=== PATIENT | female | born 1995 | race Hispanic/Latino ===

== ENCOUNTER 2022-01-26 17:06 | Observation (INO) | payer MEDICAID ==
[~2022-01-26] VITALS: Ht 157.5 cm; Wt 99.8 kg
[2022-01-26 17:11] VITALS: BP 137/83
[2022-01-26 17:58] LABS: APPEARANCE,URINE CLOUDY (CLEAR); BILIRUBIN,URINE NEGATIVE (NEGATIVE); COLOR,URINE YELLOW (YELLOW); GLUCOSE, URINE (UA) NEGATIVE (NEGATIVE); KETONES,URINE NEGATIVE (NEGATIVE); LEUKOCYTE ESTERASE ,URINE 500 Leu/uL (NEGATIVE); NITRATE,URINE NEGATIVE (NEGATIVE); OCCULT BLOOD,URINE NEGATIVE (NEGATIVE); PROTEIN,URINE 50 mg/dL (NEGATIVE); UROBILINOGEN,URINE 6 mg/dL (0.2-1.0)
[2022-01-26 18:06] LABS: BACTERIA,URINE RARE /HPF (None Seen); CALCIUM OXALATE CRYSTALS,UR RARE /LPF (None Seen); MUCUS,URINE RARE LPF (None Seen); RENAL EPITHELIAL CELLS,URINE RARE /HPF (None Seen); SQUAMOUS EPITHELIAL CELL,UR MANY /HPF (0-2)
[2022-01-26] MEDS ORDERED: ONDANSETRON 4MG INJ IVP ONE (19:30)
[2022-01-26] MEDS ORDERED: LACTATED RINGERS 1000ML IV SCH (19:30)
[2022-01-26] MEDS ORDERED: LACTATED RINGERS 1000ML 1,000 ML IV SCH (21:00)
== END 2022-01-26 21:20 | disposition home or self-care (01) ==
LOC: EDH 17:06 → LDH 17:07
PROVIDERS: ADMIT Obstetrics & Gynecology; ATTEND Obstetrics & Gynecology
DX: O21.2 Late vomiting of pregnancy (principal); O26.893 Other specified pregnancy related conditions, third trimester; R19.7 Diarrhea, unspecified; Z3A.37 37 weeks gestation of pregnancy; Z79.899 Other long term (current) drug therapy
CPT/HCPCS: 96374; 59025; 87088; 81001; G0378 ×4; G0379; J7120; J2405; 96360

== ENCOUNTER 2022-06-12 21:24 | Emergency (ER) | payer MEDICAID ==
[~2022-06-12] VITALS: Ht 157.5 cm; Wt 86.6 kg
[2022-06-13] MEDS ORDERED: 0.9%NACL 1000ML 1,000 ML IV ONE
[2022-06-13] MEDS ORDERED: MORPHINE 4 MG SYG IVP ONE
[2022-06-13] MEDS ORDERED: ONDANSETRON 4MG INJ IVP ONE
[2022-06-13 00:05] LABS: BASOPHILS % (AUTO) 0.3 % (0.0-5.0); EOSINOPHILS % (AUTO) 0.3 % (0.0-8.0); HEMATOCRIT 45.5 % (36-48); LYMPHOCYTES % (AUTO) 16.6 % (21.0-51.0); MEAN CORPUSCULAR HEMOGLOBIN 26.5 pg (27.0-33.0); MEAN CORPUSCULAR HGB CONC 32.3 g/dL (32.0-36.0); MONOCYTES % (AUTO) 4.1 % (3.0-13.0); NEUTROPHILS % (AUTO) 78.3 % (40.0-77.0); PLATELET COUNT (AUTO) 292 K/uL (130-400); RED BLOOD CELL COUNT(AUTO) 5.55 MIL/uL (4.00-5.50); RED CELL DISTRIBUTION WIDTH 15.8 % (11.0-15.5); WHITE BLOOD COUNT (AUTO) 15.5 K/uL (4.8-10.8)
[2022-06-13 00:10] LABS: APPEARANCE,URINE CLEAR (CLEAR); BILIRUBIN,URINE NEGATIVE (NEGATIVE); COLOR,URINE YELLOW (YELLOW); GLUCOSE, URINE (UA) NEGATIVE (NEGATIVE); KETONES,URINE NEGATIVE (NEGATIVE); LEUKOCYTE ESTERASE ,URINE NEGATIVE Leu/uL (NEGATIVE); NITRATE,URINE NEGATIVE (NEGATIVE); OCCULT BLOOD,URINE NEGATIVE (NEGATIVE); PROTEIN,URINE 20 mg/dL (NEGATIVE); UROBILINOGEN,URINE 0.2 mg/dL (0.2-1.0)
[2022-06-13 00:12] LABS: HCG,QUALITATIVE URINE NEGATIVE (NEGATIVE)
[2022-06-13 00:13] LABS: BACTERIA,URINE RARE /HPF (None Seen); MUCUS,URINE MANY LPF (None Seen); SQUAMOUS EPITHELIAL CELL,UR FEW /HPF (0-2)
[2022-06-13 00:15] LABS: CREATININE 0.9 mg/dL (0.5-1.5)
[2022-06-13 00:20] LABS: ALBUMIN 3.9 g/dL (3.5-5.0); TOTAL PROTEIN, SERUM 8.2 g/dL (6.0-8.3)
[2022-06-13 00:31] VITALS: BP 118/67
[2022-06-13] MEDS ORDERED: DICY20TA2 PO (00:40)
[2022-06-13] MEDS ORDERED: ONDA4TAB10 PO (00:40)
== END 2022-06-13 01:20 | disposition home or self-care (01) ==
LOC: EDH 21:24
DX: K52.9 Noninfective gastroenteritis and colitis, unspecified (principal)
CPT/HCPCS: 99285; 76705; 80053; 83690; 85025; 81001; 81025; 36415; 96374; 96375; J7030; J2405; J2270

== ENCOUNTER 2022-08-05 00:57 | Emergency (ER) | payer MEDICAID ==
[~2022-08-05] VITALS: Ht 157.5 cm; Wt 88.0 kg
[~2022-08-05 00:57] MED LIST: DICY20TA2 PO; ONDA4TAB10 PO
[2022-08-05 02:48] VITALS: BP 139/85
== END 2022-08-05 03:06 | disposition home or self-care (01) ==
LOC: EDH 00:57
DX: T81.30XA Disruption of wound, unspecified, initial encounter (principal); Z98.890 Other specified postprocedural states
CPT/HCPCS: 82948

== ENCOUNTER 2022-08-05 11:14 | Emergency (ER) | payer MEDICAID ==
[~2022-08-05] VITALS: Ht 162.6 cm; Wt 88.0 kg
[2022-08-05 11:16] VITALS: BP 163/88
== END 2022-08-05 13:17 | disposition home or self-care (01) ==
LOC: EDH 11:14
DX: T81.30XA Disruption of wound, unspecified, initial encounter (principal); Z98.890 Other specified postprocedural states
CPT/HCPCS: 87070; 87076

== ENCOUNTER 2023-02-14 08:58 | Emergency (ER) | payer MEDICAID, OTHER ==
[~2023-02-14] VITALS: Ht 157.5 cm; Wt 95.3 kg
[2023-02-14 09:03] VITALS: BP 130/79; PULSE 72; RESP 20; O2SAT 97
[2023-02-14] MEDS ORDERED: KETOROLAC 15MG/ML VIAL (15MG/ML) ONE (09:28)
[2023-02-14] MEDS ORDERED: AMOX/CLAV 875/125MG TAB PO ONE (09:30)
[2023-02-14] MEDS ORDERED: METOCLOPRAMIDE 10 MG/2 ML VIAL IVP ONE (09:30)
[2023-02-14] MEDS ORDERED: KETOROLAC 30MG VIAL (30MG/ML) IVP ONE (09:30)
[2023-02-14] MEDS ORDERED: DiphenhydrAMINE HCL 50 MG/ML VIAL IV ONE (09:30)
[2023-02-14 09:40] LABS: BASOPHILS # (AUTO) 0.03 K/uL (0.00-0.20); BASOPHILS % (AUTO) 0.3 % (0.0-5.0); EOSINOPHILS # (AUTO) 0.15 K/uL (0.00-0.70); EOSINOPHILS % (AUTO) 1.6 % (0.0-8.0); HEMATOCRIT 47.7 % (36-48); IMMATURE GRANULOCYTE ABSOLUTE 0.03 K/uL (0-1); LYMPHOCYTES # (AUTO) 3.4 K/uL (1.0-4.8); LYMPHOCYTES % (AUTO) 35.6 % (21.0-51.0); MEAN CORPUSCULAR HEMOGLOBIN 29.4 pg (27.0-33.0); MEAN CORPUSCULAR HGB CONC 32.9 g/dL (32.0-36.0); MEAN CORPUSCULAR VOLUME 89.3 fL (79-99); MONOCYTES # (AUTO) 0.6 K/uL (0.1-1.0); MONOCYTES % (AUTO) 6.1 % (3.0-13.0); NEUTROPHILS # (AUTO) 5.3 K/uL (1.8-7.7); NEUTROPHILS % (AUTO) 56.1 % (40.0-77.0); PLATELET COUNT (AUTO) 212 K/uL (130-400); RED BLOOD CELL COUNT(AUTO) 5.34 MIL/uL (4.00-5.50); WHITE BLOOD COUNT (AUTO) 9.4 K/uL (4.8-10.8)
[2023-02-14 09:49] LABS: APPEARANCE,URINE CLOUDY (CLEAR); BILIRUBIN,URINE NEGATIVE (NEGATIVE); COLOR,URINE YELLOW (YELLOW); GLUCOSE, URINE (UA) NEGATIVE (NEGATIVE); KETONES,URINE NEGATIVE (NEGATIVE); LEUKOCYTE ESTERASE ,URINE NEGATIVE Leu/uL (NEGATIVE); NITRATE,URINE NEGATIVE (NEGATIVE); OCCULT BLOOD,URINE NEGATIVE (NEGATIVE); PROTEIN,URINE 30 mg/dL (NEGATIVE); UROBILINOGEN,URINE 0.2 mg/dL (0.2-1.0)
[2023-02-14 09:51] LABS: CREATININE 0.8 mg/dL (0.5-1.5); POTASSIUM 3.8 mmol/L (3.5-5.1)
[2023-02-14 09:56] LABS: ALBUMIN 3.5 g/dL (3.5-5.0); BILIRUBIN,TOTAL 0.2 mg/dL (0.2-1.0); TOTAL PROTEIN, SERUM 7.3 g/dL (6.0-8.3)
[2023-02-14 09:57] LABS: HCG,QUALITATIVE URINE NEGATIVE (NEGATIVE)
[2023-02-14 10:07] LABS: ADD UA MICROSCOPIC YES
[2023-02-14] MEDS ORDERED: AMOX1TAB16 PO (10:14)
[2023-02-14 10:23] LABS: BACTERIA,URINE RARE /HPF (None Seen); MUCUS,URINE RARE LPF (None Seen); SQUAMOUS EPITHELIAL CELL,UR FEW /HPF (0-2)
== END 2023-02-14 10:33 | disposition home or self-care (01) ==
LOC: EDH 08:58
DX: J01.90 Acute sinusitis, unspecified (principal); R51.9 Headache, unspecified; J32.0 Chronic maxillary sinusitis
CPT/HCPCS: 99284; 96374; 96375; 80053; 85025; 81001; 81025; 36415; J1200; J2765; J1885